=== PATIENT | male | born 1965 | race Caucasian/White ===

== ENCOUNTER 2018-02-19 13:44 | Emergency (ER) | payer SELFPAY ==
[2018-02-19 14:07] VITALS: TEMP 98.1; BMI 19.9
--- NOTE | 2018-02-19 14:10 | PDOC ---
Rapid Medical Evaluation Time Seen by Provider: 02/19/18 14:05 Medical Evaluation: Allergies Allergy/AdvReac Type Severity Reaction Status Date / Time No Known Allergies Allergy Verified 02/19/18 14:01 02/19/18 14:06 Patient with PMH of cirrhosis, presents to the ED c/o strong substernal chest pain since this morning. Rates the pain a 10/10. Pertinent Physical exam findings: ambulatory, no respiratory distress. Chest pain reproducable with movement Pt. will proceed to the ED for further evaluation
[2018-02-19 14:51] LABS: URINE APPEARANCE CLEAR; URINE BILIRUBIN NEGATIVE (<2.0 mg/dL); URINE BLOOD NEGATIVE (NEGATIVE); URINE COLOR COLORLESS; URINE GLUCOSE (UA) NEGATIVE (NEGATIVE); URINE KETONE NEGATIVE (NEGATIVE); URINE LEUK ESTERASE NEGATIVE (NEGATIVE); URINE NITRITE NEGATIVE (NEGATIVE); URINE PROTEIN NEGATIVE (NEGATIVE); URINE UROBILINOGEN NEGATIVE mg/dL (0.2-1.0)
[2018-02-19 14:57] LABS: BASO % 1.4 % (0-2.0); EOS % 1.6 % (0-4.5); HEMATOCRIT 38.5 % (35.4-49); HEMOGLOBIN 13.3 GM/dL (11.7-16.9); LYMPH % 26.5 % (8-40); MCH 34.7 pg (25.7-33.7); MCHC 34.6 g/dl (32.0-35.9); MEAN CELL VOLUME 100.4 fl (80-96); MEAN PLT VOLUME 7.5 fl (7.5-11.1); MONO % 10.3 % (3.8-10.2); NEUT % 60.2 % (42.8-82.8); PLATELET COUNT 195 K/MM3 (134-434); RBC 3.83 M/mm3 (4.00-5.60); RDW 13.3 % (11.9-15.9); WHITE BLOOD COUNT 5.1 K/mm3 (4.0-10.0)
[2018-02-19 15:11] LABS: INR 0.81 (0.82-1.09); PROTHROMBIN TIME (PATIENT) 9.1 SEC (9.98-11.88)
[2018-02-19 15:20] LABS: ANION GAP 11 (8-16); CALCIUM 8.6 mg/dL (8.5-10.1); CHLORIDE 104 mmol/L (98-107); CO2 27 mmol/L (21-32); CREATININE 0.5 mg/dL (0.7-1.3); GLUCOSE,RANDOM 99 mg/dL (74-106); MAGNESIUM 2.8 mg/dL (1.8-2.4); POTASSIUM 4.3 mmol/L (3.5-5.1); SGOT/AST 124 U/L (15-37); SGPT/ALT 118 U/L (12-78); SODIUM 142 mmol/L (136-145)
[2018-02-19 15:25] LABS: ALK PHOS 92 U/L (45-117); BILIRUBIN,TOTAL 0.3 mg/dL (0.2-1.0); BLOOD UREA NITROGEN 7 mg/dL (7-18); TOT PROT 7.9 g/dl (6.4-8.2)
[2018-02-19] MEDS ORDERED: KETOROLAC TROMETHAMINE 30 MG/1 ML VIAL IVPUSH ONE (15:25)
[2018-02-19] MEDS ORDERED: FOLIC ACID INJECTION - 1 MG, THIAMINE HCL 100 MG, MULTIVIT INJECTION ADULT 10 ML in SOD... IVPB ONE (15:27)
[2018-02-19] MEDS ORDERED: KETOROLAC TROMETHAMINE 30 MG/1 ML VIAL ONE (15:46)
--- NOTE | 2018-02-19 15:53 | EKG ---
Test Reason : Blood Pressure : / mmHG Vent. Rate : 087 BPM Atrial Rate : 087 BPM P-R Int : 166 ms QRS Dur : 080 ms QT Int : 378 ms P-R-T Axes : 075 070 071 degrees QTc Int : 454 ms NORMAL SINUS RHYTHM NORMAL ECG NO PREVIOUS ECGS AVAILABLE Confirmed by SUKH FIELD MD ([id number]) on 02/19/2018 3:52:57 PM Referred By: Confirmed By:SUKH FIELD MD
--- NOTE | 2018-02-19 17:34 | PDOC ---
History of Present Illness - General Chief Complaint: Chest Pain Stated Complaint: CHEST PAIN Time Seen by Provider: 02/19/18 14:05 History Source: Patient Exam Limitations: No Limitations - History of Present Illness Travel History: No Initial Comments: 02/19/18 17:01 52-year-old male presents to the ED with complaints of right-sided chest pain worsened with movement and deep breathing that radiates to his right upper quadrant and mid sternal region. 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 Patient also states is an alcoholic but denies history of pancreatitis or cirrhosis. She denies nausea vomiting fever, chills, headache, difficulty breathing, palpitations, or diaphoresis. Timing/Duration: reports: intermittent Quality: reports: mild, aching Abdominal Pain Onset Location: reports: other Pain Radiation: reports: RUQ, chest Aggravating Factors: improves with: Movement Alleviating Factors: improves with: None Past History - Travel Traveled outside of the country in the last 30 days: No - Past Medical History Allergies/Adverse Reactions: Allergies Allergy/AdvReac Type Severity Reaction Status Date / Time No Known Allergies Allergy Verified 02/19/18 14:01 Home Medications: Ambulatory Orders No Home Medications 07/10/12 Asthma: No Cardiac Disorders: No COPD: No Diabetes: No GI Disorders: No Disorders: No HTN: No Kidney Stones: No Seizures: No Other medical history: DENIES. - Surgical History Abdominal Surgery: No Appendectomy: No Cardiac Surgery: No Cholecystectomy: No Lung Surgery: No Neurologic Surgery: No Orthopedic Surgery: No - Reproductive History Testicular Surgery: No - Suicide/Smoking/Psychosocial Hx Smoking Status: Yes Smoking History: Current some day smoker Have you smoked in the past 12 months: Yes Number of Cigarettes Smoked Daily: 2 Information on smoking cessation initiated: Yes 'Breaking Loose' booklet given: 02/19/18 Hx Alcohol Use: Yes (3 BEERS A DAY) Drug/Substance Use Hx: No Substance Use Type: Alcohol Hx Substance Use Treatment: Yes ([facility]) Patient Lives Alone: No Abd/GI Specific PMHX - Complaint Specific PMHX Hepatitis: No Pancreatitis: No Review of Systems - Review of Systems Able to Perform ROS?: No Constitutional: No: Symptoms Reported HEENTM: No: Symptoms Reported Respiratory: No: Symptoms reported Cardiac (ROS): Yes: Chest Pain (right-sided) ABD/GI: Yes: Poor Appetite, Poor Fluid Intake. No: Constipated, Diarrhea : No: Symptoms Reported Musculoskeletal: No: Symptoms Reported Integumentary: No: Symptoms Reported Neurological: No: Symptoms reported Hematologic/Lymphatic: No: Symptoms Reported *Physical Exam - Vital Signs Last Vital Signs Temp Pulse Resp BP Pulse Ox 98.1 F 83 19 130/87 95 02/19/18 14:01 02/19/18 14:01 02/19/18 14:01 02/19/18 14:01 02/19/18 14:01 - Physical Exam General Appearance: Yes: Nourished, Appropriately Dressed. No: Apparent Distress HEENT: positive: Pharynx Normal (dry) Neck: positive: Supple Respiratory/Chest: positive: Chest Tender (right lower chest at midclavicular line and laterally Eighth intercostal space to right upper qurant), Lungs Clear , Normal Breath Sounds. negative: Respiratory Distress, Accessory Muscle Use Cardiovascular: positive: Regular Rhythm, Regular Rate. negative: Murmur Gastrointestinal/Abdominal: positive: Soft, Tenderness (right upper quadrant and right epigastric) Extremity: positive: Normal Capillary Refill. negative: Pedal Edema ED Treatment Course - LABORATORY CBC & Chemistry Diagram: 02/19/18 14:31 02/19/18 14:31 - ADDITIONAL ORDERS Additional order review: Laboratory Results 02/19/18 02/19/18 02/19/18 14:37 14:31 14:31 PT with INR 9.10 L INR 0.81 L Sodium 142 Potassium 4.3 Chloride 104 Carbon Dioxide 27 Anion Gap 11 BUN 7 D Creatinine 0.5 L D Creat Clearance w eGFR > 60 Random Glucose 99 D Calcium 8.6 Magnesium 2.8 H Total Bilirubin 0.3 D AST 124 H D ALT 118 H Alkaline Phosphatase 92 D Creatine Kinase Creatine Kinase Index CK-MB (CK-2) Troponin I Total Protein 7.9 Albumin 4.0 Urine Color Colorless Urine Appearance Clear Urine pH 6.0 Ur Specific Anderson 1.002 Urine Protein Negative Urine Glucose (UA) Negative Urine Ketones Negative Urine Blood Negative Urine Nitrite Negative Urine Bilirubin Negative Urine Urobilinogen Negative Ur Leukocyte Esterase Negative 02/19/18 14:18 PT with INR INR Sodium Potassium Chloride Carbon Dioxide Anion Gap BUN Creatinine Creat Clearance w eGFR Random Glucose Calcium Magnesium Total Bilirubin AST ALT Alkaline Phosphatase Creatine Kinase 211 Creatine Kinase Index 0.4 CK-MB (CK-2) < 1.000 Troponin I < 0.02 Total Protein Albumin Urine Color Urine Appearance Urine pH Ur Specific Anderson Urine Protein Urine Glucose (UA) Urine Ketones Urine Blood Urine Nitrite Urine Bilirubin Urine Urobilinogen Ur Leukocyte Esterase 02/19/18 14:31 RBC 3.83 L MCV 100.4 H MCHC 34.6 RDW 13.3 MPV 7.5 Neutrophils % 60.2 Lymphocytes % 26.5 Monocytes % 10.3 H Eosinophils % 1.6 Basophils % 1.4 - RADIOLOGY Radiology Studies Ordered: Category Date Time Status GALLBLADDER US [US] Stat Ultrasound 02/19/18 15:25 Completed - Medications Given in the ED: ED Medications Discontinued Medications Generic Name Dose Route Start Last Admin Trade Name Sudhakarq PRN Reason Stop Dose Admin Ketorolac Tromethamine 30 mg 02/19/18 15:25 02/19/18 15:54 Toradol Injection - IVPUSH 02/19/18 15:26 30 mg ONCE ONE Administration Medical Decision Making - Medical Decision Making 02/19/18 16:48 Patient with history of alcohol abuse presents the ED with complaints of right- sided chest pain that rates his right upper quadrant worsened with movement and deep breathing. Patient had reproducible right sided chest pain and right upper quadrant pain. Patient with likely muscle skeletal versus pancreatitis versus cholecystitis versus pneumonia. Patient ordered for labs and imaging from rapid medical evaluation. I have added a gallbladder ultrasound along with a banana bag and Toradol for pain 02/19/18 17:52 Laboratory Tests 02/19/18 02/19/18 02/19/18 14:18 14:31 14:31 WBC 5.1 Hgb 13.3 Hct 38.5 MCV 100.4 H MCH 34.7 H MCHC 34.6 RDW 13.3 Plt Count 195 MPV 7.5 Neutrophils % 60.2 Lymphocytes % 26.5 Monocytes % 10.3 H Eosinophils % 1.6 Basophils % 1.4 PT with INR INR Sodium 142 Potassium 4.3 Chloride 104 Carbon Dioxide 27 Anion Gap 11 BUN 7 D Creatinine 0.5 L D Creat Clearance w eGFR > 60 Random Glucose 99 D Calcium 8.6 Magnesium 2.8 H Total Bilirubin 0.3 D AST 124 H D ALT 118 H Creatine Kinase 211 Creatine Kinase Index 0.4 CK-MB (CK-2) < 1.000 Troponin I < 0.02 Urine Ketones Urine Nitrite Urine Bilirubin Ur Leukocyte Esterase 02/19/18 02/19/18 14:31 14:37 WBC Hgb Hct MCV MCH MCHC RDW Plt Count MPV Neutrophils % Lymphocytes % Monocytes % Eosinophils % Basophils % PT with INR 9.10 L INR 0.81 L Sodium Potassium Chloride Carbon Dioxide Anion Gap BUN Creatinine Creat Clearance w eGFR Random Glucose Calcium Magnesium Total Bilirubin AST ALT Creatine Kinase Creatine Kinase Index CK-MB (CK-2) Troponin I Urine Ketones Negative Urine Nitrite Negative Urine Bilirubin Negative Ur Leukocyte Esterase Negative Patient will be discharged home and was offered detox which he refused at this time. Patient states feeling better after receiving the Toradol. 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 patient last drink was this morning which consisted of 3 beers. *DC/Admit/Observation/Transfer Diagnosis at time of Disposition: Right-sided chest pain - Discharge Dispostion Disposition: HOME Condition at time of disposition: Improved - Referrals - Patient Instructions Printed Discharge Instructions: DI for Musculoskeletal Pain, DI for Alcohol Abuse Additional Instructions: Please utilizes all resources to abstain from alcohol use. May take Motrin only for discomfort. Avoid movement that trigger discomfort. - Post Discharge Activity
[2018-02-19 18:53] VITALS: BP 128/72; PULSE 89
== END 2018-02-19 19:02 | disposition home or self-care (01) ==
LOC: JER 13:44
PROC: 3E033GC Introduction of Other Therapeutic Substance into Peripheral Vein, Percutaneous Approach (ICD-10-PCS; principal; 2018-02-19)
PROC: 3E0333Z Introduction of Anti-inflammatory into Peripheral Vein, Percutaneous Approach (ICD-10-PCS; 2018-02-19)
DX: R07.89 Other chest pain (principal); F10.10 Alcohol abuse, uncomplicated; F17.210 Nicotine dependence, cigarettes, uncomplicated
CPT/HCPCS: 36415; 71046-TC-FY; 76705-TC; 80053; 81003; 82550; 82553; 83690; 83735; 84484; 85025; 85610; 93005; 93010; 99285-25; J7030

== ENCOUNTER 2019-01-10 14:10 | Emergency (ER) | payer SELFPAY ==
[2019-01-10 14:45] VITALS: BMI 19.2
--- NOTE | 2019-01-10 14:54 | PDOC ---
History of Present Illness - General Chief Complaint: Pain Stated Complaint: LL ABD PAIN Time Seen by Provider: 01/10/19 14:53 History Source: Patient, Family (Son) Exam Limitations: No Limitations Past History - Past Medical History Allergies/Adverse Reactions: Allergies Allergy/AdvReac Type Severity Reaction Status Date / Time No Known Allergies Allergy Verified 01/10/19 14:45 Home Medications: Ambulatory Orders No Home Medications 07/10/12 Omeprazole 20 mg PO DAILY PRN #30 tablet. 01/10/19 Asthma: No Cardiac Disorders: No COPD: No Diabetes: No GI Disorders: No Disorders: No HTN: No Kidney Stones: No Seizures: No - Surgical History Abdominal Surgery: No Appendectomy: No Cardiac Surgery: No Cholecystectomy: No Lung Surgery: No Neurologic Surgery: No Orthopedic Surgery: No - Reproductive History Testicular Surgery: No - Suicide/Smoking/Psychosocial Hx Smoking Status: Yes Smoking History: Never smoked Have you smoked in the past 12 months: No Number of Cigarettes Smoked Daily: 2 Information on smoking cessation initiated: No 'Breaking Loose' booklet given: 02/19/18 Hx Alcohol Use: No Drug/Substance Use Hx: No Substance Use Type: Alcohol Hx Substance Use Treatment: Yes ([facility]) *Physical Exam - Vital Signs Last Vital Signs Temp Pulse Resp BP Pulse Ox 98.3 F 88 16 155/95 100 01/10/19 14:30 01/10/19 14:30 01/10/19 14:30 01/10/19 14:30 01/10/19 14:30 Moderate Sedation - Procedure Monitoring Vital Signs: Procedure Monitoring Vital Signs Temperature 98.3 F 01/10/19 14:30 Pulse Rate 88 01/10/19 14:30 Respiratory Rate 16 01/10/19 14:30 Blood Pressure 155/95 01/10/19 14:30 O2 Sat by Pulse Oximetry (%) 100 01/10/19 14:30 ED Treatment Course - LABORATORY CBC & Chemistry Diagram: 01/10/19 16:09 01/10/19 16:09 Medical Decision Making - Medical Decision Making Pt was seen at bedside, also will be seen by attending Dr. Borges. Pt presenting with complaints of LUQ abdominal pain, nausea, NBNB vomiting, and loose stool. Hypertensive 155/95, pt afebrile. Pt in looks uncomfortable, but in NAD, normal body habitus. PE showed pt alert and oriented. horse rancher generally intact, muscular strength and sensation intact. Eyes PERRLA, EOMI. Oropharynx without erythema or exudates. Dry oral mucosa and decreased skin turgor. No nasal congestion, hearing intact. Clear heart sounds, S1/S2, no JVD, b/l pedal edema, or heart murmur. Clear lung sounds, no respiratory distress, wheezes, crackles, or accessory muscle use. Pt guarding his abdomen, diffusely tender, worst in the LUQ. No CVA tenderness. Normoactive bowel sounds. Skin without jaundice or rash. Considering pancreatitis vs duodenal/gastric ulcer or perforation vs colitis/ diverticulitis vs UTI vs nephrolithiasis. Ordered work-up including CBC, CMP, Mg, lactic acid, cardiac profile, UA, urine culture, coags, and chest x-ray (r/o free air). Provided 1 g IV ofirmev, 1 L IV NS, 40 mg IV protonix, and 4 mg IV zofran for improvement of discomfort, dehydration, and nausea. Will continue to reassess pt and monitor for symptomatic improvement. 01/10/19 16:24 ECG: NSR, intervals WNL. No TWIs or significant ST segment changes. No significant changes from prior ECG. 01/10/19 16:46 CBC and CMP WNL. AST and ALT not elevated Lipase 393 (upper limit of normal) Trop <.02, Lactic 2.0 Coags WNL. 01/10/19 16:59 Pt tolerated PO intake and states he is feeling much better after the medications and fluids. Will send omeprazole to pt pharmacy. Considering normal lab results and imaging and clinical improvement, pt can be discharged to home with follow-up. Pt advised to follow-up with PCP in 1-2 days and has been referred to GI. PCP appointment made at the clinic. Strict return precautions provided with pt understanding. 01/10/19 17:41 *DC/Admit/Observation/Transfer Diagnosis at time of Disposition: LUQ abdominal pain - Discharge Dispostion Disposition: HOME Condition at time of disposition: Improved Decision to Admit order: No - Referrals Referrals: Fabio Oliver MD [Staff Physician] - Madison Frye MD [Staff Physician] - - Patient Instructions Printed Discharge Instructions: DI for Abdominal Pain-Adult Additional Instructions: You were seen in the ER today for abdominal pain. The results of your labs and imaging today were normal. Please follow-up with your primary care doctor and GI (Dr. Oliver) within 1-2 days to discuss your visit and make sure your symptoms have improved. Please return to the ER if you have any worsening pain, blood in your vomit or stool, development of fevers or chills, loss of consciousness, inability to tolerate food or fluids, or any other concerns. I have sent omeprazole (acid safety teacher) to your pharmacy. Please take this medicine as prescribed. - Post Discharge Activity
[2019-01-10] MEDS ORDERED: ONDANSETRON 4 MG/2 ML VIAL IVPUSH ONE (15:12)
[2019-01-10] MEDS ORDERED: SODIUM CHLORIDE 1,000 ML IV STA (15:12)
[2019-01-10] MEDS ORDERED: ACETAMINOPHEN 1000 MG/100 ML VIAL (NON FORMULARY) IVPB ONE (15:12)
[2019-01-10] MEDS ORDERED: PANTOPRAZOLE SODIUM 40 MG in SODIUM CHLORIDE 100 ML IVPB ONE (15:28)
[2019-01-10] MEDS ORDERED: ACETAMINOPHEN INJECTION 100 ML IVPB ONE (16:09)
[2019-01-10] MEDS ORDERED: PANTOPRAZOLE SODIUM 40 MG VIAL ONE (16:10)
[2019-01-10] MEDS ORDERED: ONDANSETRON 4 MG/2 ML VIAL ONE (16:10)
[2019-01-10 16:29] LABS: BASO % 0.8 % (0-2.0); EOS % 0.3 % (0-4.5); HEMATOCRIT 38.4 % (35.4-49); HEMOGLOBIN 13.6 GM/dL (11.7-16.9); LYMPH % 20.5 % (8-40); MCH 35.4 pg (25.7-33.7); MCHC 35.4 g/dl (32.0-35.9); MEAN CELL VOLUME 99.8 fl (80-96); MEAN PLT VOLUME 7.5 fl (7.5-11.1); NEUT % 69.4 % (42.8-82.8); PLATELET COUNT 188 K/MM3 (134-434); RBC 3.85 M/mm3 (4.00-5.60); RDW 12.4 % (11.9-15.9); WHITE BLOOD COUNT 5.7 K/mm3 (4.0-10.0)
[2019-01-10 16:36] LABS: INR 0.87 (0.83-1.09); PROTHROMBIN TIME (PATIENT) 10.2 SEC (9.7-13.0)
--- NOTE | 2019-01-10 16:40 | PDOC ---
Attending Attestation - Resident Resident Name: SabrinaMaria Ines - ED Attending Attestation I have performed the following: I have examined & evaluated the patient, The case was reviewed & discussed with the resident, I agree w/resident's findings & plan, Exceptions are as noted - HPI HPI: 01/10/19 16:31 The patient is a 53 year old male, with a past medical history of alcohol abuse , who presents to the emergency department with, 3 days of LUQ pain radiating to his back and upper chest. He also notes associated nausea, non-bloody emesis , and one episode of loose stool. He denies any recent headache or dizziness. He denies any recent palpitations or shortness of breath. He denies any recent dysuria, frequency, urgency or hematuria. Allergies: NKDA - Physicial Exam PE: 01/10/19 16:47 "GENERAL: Awake, alert, and fully oriented, in no acute distress. HEAD: No signs of trauma EYES: PERRLA, EOMI, sclera anicteric, conjunctiva clear ENT: Auricles normal inspection, hearing grossly normal, nares patent, oropharynx clear without exudates. Moist mucosa NECK: Nontender, no stepoffs, Normal ROM, supple, no lymphadenopathy, JVD, or masses LUNGS: Breath sounds equal, clear to auscultation bilaterally. No wheezes, and no crackles HEART: Regular rate and rhythm, normal S1 and S2, no murmurs, rubs or gallops ABDOMEN: + LUQ TTP, normoactive bowel sounds. No guarding, no rebound. No masses EXTREMITIES: Normal range of motion, no edema. No clubbing or cyanosis. No cords, erythema, or tenderness NEUROLOGICAL: Cranial nerves II through XII intact. 5/5 strength and sensation in all extremities, Normal speech, normal gait, normal cerebellar function SKIN: Warm, Dry, normal turgor, no rashes or lesions noted. - Medical Decision Making 01/10/19 16:48 53 M with h/o ETOH abuse presenting with LUQ pain. Pancreatitis vs gastritis vs PUD. Also consider perforated ulcer. - Labs, lipase - Upright CXR to r/o free air - GI cocktail - Consider CT 01/10/19 17:44 Labs wnl CXR without free air Pt reassessed after GI cocktail - states he feels much better. Suspect gastritis vs PUD. Pt counseled on reducing alcohol intake. Understands that continued use can lead to worsening of his condition. GI f/u given Pt is well appearing, with normal vitals. Clinically stable for DC at this time. I discussed the physical exam findings, ancillary test results and final diagnoses with the patient. I answered all of the patient's questions. The patient was satisfied with the care received and felt comfortable with the discharge plan and treatment plan. The patient agrees to follow up with the primary care physician within 24-72 hours.
[2019-01-10 16:41] LABS: URINE APPEARANCE CLEAR; URINE BILIRUBIN NEGATIVE (<2.0 mg/dL); URINE COLOR COLORLESS; URINE GLUCOSE (UA) 1+ (NEGATIVE); URINE KETONE TRACE (NEGATIVE); URINE LEUK ESTERASE NEGATIVE (NEGATIVE); URINE NITRITE NEGATIVE (NEGATIVE); URINE PROTEIN NEGATIVE (NEGATIVE); URINE UROBILINOGEN NEGATIVE mg/dL (0.2-1.0)
[2019-01-10 16:56] LABS: ALBUMIN 4.1 g/dl (3.4-5.0); ALK PHOS 50 U/L (45-117); ANION GAP 9 MMOL/L (8-16); BILIRUBIN,TOTAL 0.6 mg/dL (0.2-1); BLOOD UREA NITROGEN 9 mg/dL (7-18); CALCIUM 8.4 mg/dL (8.5-10.1); CHLORIDE 102 mmol/L (98-107); CO2 27 mmol/L (21-32); CREATININE 1.2 mg/dL (0.55-1.3); GLUCOSE,RANDOM 70 mg/dL (74-106); LIPASE 393 U/L (73-393); POTASSIUM 3.8 mmol/L (3.5-5.1); SGOT/AST 25 U/L (15-37); SGPT/ALT 27 U/L (13-61); SODIUM 138 mmol/L (136-145); TOT PROT 7.6 g/dl (6.4-8.2)
[2019-01-10 17:57] VITALS: BP 129/89; PULSE 85; TEMP 98.4
--- NOTE | 2019-01-11 10:32 | EKG ---
Test Reason : Blood Pressure : / mmHG Vent. Rate : 075 BPM Atrial Rate : 075 BPM P-R Int : 148 ms QRS Dur : 084 ms QT Int : 376 ms P-R-T Axes : 076 075 064 degrees QTc Int : 419 ms NORMAL SINUS RHYTHM NORMAL ECG WHEN COMPARED WITH ECG OF 19-FEB-2018 13:49, NO SIGNIFICANT CHANGE WAS FOUND Confirmed by TERESA BAXTER MD ([id number]) on 01/11/2019 10:31:45 AM Referred By: Confirmed By:TERESA BAXTER MD
== END 2019-01-10 18:35 | disposition home or self-care (01) ==
LOC: JER 14:10
PROC: 3E033GC Introduction of Other Therapeutic Substance into Peripheral Vein, Percutaneous Approach (ICD-10-PCS; principal; 2019-01-10)
PROC: 3E033GC Introduction of Other Therapeutic Substance into Peripheral Vein, Percutaneous Approach (ICD-10-PCS; 2019-01-10)
PROC: 3E033NZ Introduction of Analgesics, Hypnotics, Sedatives into Peripheral Vein, Percutaneous Approach (ICD-10-PCS; 2019-01-10)
DX: R10.12 Left upper quadrant pain (principal)
CPT/HCPCS: 36415; 71045-TC-FY; 80053; 81003; 82550; 82553; 83605; 83690; 83735; 84484; 85025; 85610; 87086; 93005; 93010; 99283-25; J0131; J7030

== ENCOUNTER 2021-04-21 10:26 | Emergency (ER) | payer SELFPAY ==
[2021-04-21 10:31] VITALS: BP 130/90; PULSE 87; TEMP 97.6; BMI 18.8
[2021-04-21] MEDS ORDERED: DALBAVANCIN HCL 1,500 MG in DEXTROSE 5%-WATER - 500 ML IVPB ONE ×2 (11:04→12:30)
[2021-04-21] MEDS ORDERED: DALBAVANCIN HCL 500 MG VIAL (RESTRICTED TO ID ONLY) IVPB ONE (12:35)
[2021-04-21 13:20] LABS: CALCIUM 8.4 mg/dL (8.5-10.1)
[2021-04-21 13:21] LABS: ALBUMIN 3.9 g/dl (3.4-5.0); BLOOD UREA NITROGEN 5.8 mg/dL (7-18)
[2021-04-21] MEDS ORDERED: BACITRACIN 15 GM TUBE TOPICAL OINTMENT TP ONE (13:21)
[2021-04-21 13:24] LABS: CREATININE 0.5 mg/dL (0.55-1.3)
[2021-04-21 13:26] LABS: BILIRUBIN,TOTAL 0.4 mg/dL (0.2-1); TOT PROT 8.1 g/dl (6.4-8.2)
[2021-04-21 13:28] LABS: BASO % 2.2 % (0-2.0); EOS % 3.4 % (0-4.5); HEMATOCRIT 37.7 % (35.4-49); HEMOGLOBIN 12.9 GM/dL (11.7-16.9); LYMPH % 19.1 % (8-40); MCH 35.7 pg (25.7-33.7); MCHC 34.4 g/dl (32.0-35.9); MEAN CELL VOLUME 103.8 fl (80-96); MEAN PLT VOLUME 7.9 fl (7.5-11.1); MONO % 8.3 % (3.8-10.2); PLATELET COUNT 219 K/MM3 (134-434); RBC 3.63 M/mm3 (4.00-5.60); RDW 13.3 % (11.9-15.9); WHITE BLOOD COUNT 6.8 K/mm3 (4.0-10.0)
[2021-04-21] MEDS ORDERED: BACITRACIN 15 GM TUBE TOPICAL OINTMENT ONE (13:44)
== END 2021-04-21 13:55 | disposition home or self-care (01) ==
LOC: JER 10:26
DX: L03.116 Cellulitis of left lower limb (principal); L03.115 Cellulitis of right lower limb; S81.801A Unspecified open wound, right lower leg, initial encounter
CPT/HCPCS: 36415; 73590-TC-LT-FY; 73590-TC-RT-FY; 80053; 85025; 99285-25; J0875

== ENCOUNTER 2021-04-23 13:24 | Emergency (ER) | payer SELFPAY ==
[2021-04-23 13:32] VITALS: BP 122/82; PULSE 105; TEMP 99.2; BMI 20.6
== END 2021-04-23 13:46 | disposition home or self-care (01) ==
LOC: JERFT 13:24
CPT/HCPCS: 99284-25

== ENCOUNTER 2021-10-26 14:06 | Inpatient (IN) | payer OTHER ==
[2021-10-26] MEDS ORDERED: THIAMINE HCL 100 MG TABLET (FP) PO ONE (16:29)
[2021-10-26] MEDS ORDERED: FOLIC ACID 1 MG TABLET (FP) PO ONE (16:29)
[2021-10-26] MEDS ORDERED: LACTATED RINGERS SOLUTION 1000 ML INFUS.BAG IV ONE (16:30)
[2021-10-26] MEDS ORDERED: FOLIC ACID 1 MG TABLET (FP) ONE (17:32)
[2021-10-26] MEDS ORDERED: THIAMINE HCL 100 MG TABLET (FP) ONE (17:32)
[2021-10-26 19:20] LABS: BASO % 3.3 % (0-2.0); EOS % 3.5 % (0-4.5); HEMATOCRIT 37.1 % (35.4-49); HEMOGLOBIN 12.6 GM/dL (11.7-16.9); LYMPH % 24.1 % (8-40); MCH 34.9 pg (25.7-33.7); MEAN CELL VOLUME 102.7 fl (80-96); MONO % 11.6 % (3.8-10.2); NEUT % 57.5 % (42.8-82.8); PLATELET COUNT 141 10^3/uL (134-434); RBC 3.61 M/mm3 (4.00-5.60); RDW 13.2 % (11.9-15.9); WHITE BLOOD COUNT 2.9 K/mm3 (4.0-10.0)
[2021-10-26 19:52] LABS: ALBUMIN 3.8 g/dl (3.4-5.0); BLOOD UREA NITROGEN 5.5 mg/dL (7-18); CALCIUM 8.6 mg/dL (8.5-10.1)
[2021-10-26 19:56] LABS: CREATININE 0.5 mg/dL (0.55-1.3)
[2021-10-26 19:57] LABS: BILIRUBIN,TOTAL 0.5 mg/dL (0.2-1); TOT PROT 7.8 g/dl (6.4-8.2)
[2021-10-26] MEDS ORDERED: THIAMINE HCL 200 MG/2 ML VIAL IVPB ONE (20:55)
[2021-10-26] MEDS ORDERED: LORazepam 2 MG/ML SDV VIAL ONE (21:24)
[2021-10-26] MEDS ORDERED: THIAMINE HCL 200 MG/2 ML VIAL ONE (21:25)
[2021-10-26] MEDS: LORazepam 2 MG/ML SDV VIAL IVPUSH PRN (21:37)
[2021-10-27] MEDS ORDERED: SODIUM CHLORIDE 1,000 ML IV SCH (01:15)
[2021-10-27] MEDS: LORazepam 2 MG/ML SDV VIAL IVPUSH PRN (04:43)
[2021-10-27 05:48] VITALS: BMI 24.5
[2021-10-27 08:13] LABS: PH,URINE 7.5 (5.0-8.0); URINE APPEARANCE CLEAR; URINE BILIRUBIN NEGATIVE (NEGATIVE); URINE COLOR YELLOW; URINE GLUCOSE (UA) NEGATIVE (NEGATIVE); URINE KETONE TRACE (NEGATIVE); URINE LEUK ESTERASE NEGATIVE (NEGATIVE); URINE NITRITE NEGATIVE (NEGATIVE); URINE PROTEIN NEGATIVE (NEGATIVE); URINE UROBILINOGEN 0.2 mg/dL (0.2-1.0)
[2021-10-27] MEDS: PANTOPRAZOLE 40 MG TABLET PO SCH (10:56)
[2021-10-27 11:15] LABS: HEMATOCRIT 36.8 % (35.4-49); HEMOGLOBIN 12.7 GM/dL (11.7-16.9); MCH 35.3 pg (25.7-33.7); MCHC 34.4 g/dl (32.0-35.9); MEAN CELL VOLUME 102.7 fl (80-96); MEAN PLT VOLUME 8.4 fl (7.5-11.1); PLATELET COUNT 138 10^3/uL (134-434); RBC 3.58 M/mm3 (4.00-5.60); WHITE BLOOD COUNT 3.5 K/mm3 (4.0-10.0)
[2021-10-27 11:16] LABS: INR 0.97 (0.83-1.09); PROTHROMBIN TIME (PATIENT) 11.3 SEC (9.7-13.0)
[2021-10-27 11:43] LABS: CALCIUM 8.9 mg/dL (8.5-10.1)
[2021-10-27 11:47] LABS: ALBUMIN 3.5 g/dl (3.4-5.0)
[2021-10-27 11:48] LABS: BLOOD UREA NITROGEN 8.6 mg/dL (7-18)
[2021-10-27 11:50] LABS: CREATININE 0.5 mg/dL (0.55-1.3); PHOSPHOROUS 3.4 mg/dL (2.5-4.9)
[2021-10-27 11:52] LABS: MAGNESIUM 2.1 mg/dL (1.8-2.4); TOT PROT 7.4 g/dl (6.4-8.2)
[2021-10-27] MEDS: LORazepam 1 MG TABLET PO PRN (13:56)
[2021-10-27] MEDS ORDERED: FOLIC ACID INJECTION - 1 MG, THIAMINE HCL 100 MG in SODIUM CHLORIDE 998.8 ML IVPB ONE (16:00)
[2021-10-27] MEDS ORDERED: LORazepam 2 MG TABLET PO SCH (17:00)
[2021-10-27] MEDS: MULTIVITAMINS (DAILY MVI) TABLET (FP) PO SCH (18:49)
[2021-10-27] MEDS: LORazepam 1 MG TABLET PO SCH (19:50)
[2021-10-27] MEDS ORDERED: CILOSTAZOL 100 MG TABLET PO SCH (22:00)
[2021-10-27] MEDS: CILOSTAZOL 50 MG TABLET PO SCH (22:49)
[2021-10-28] MEDS: LORazepam 1 MG TABLET PO SCH ×5 (01:10→22:18)
[2021-10-28] MEDS ORDERED: amLODIPine BESYLATE 5 MG TABLET (FP) PO ONE (02:05)
[2021-10-28] MEDS: CILOSTAZOL 50 MG TABLET PO SCH ×2 (09:41→22:16)
[2021-10-28] MEDS: MULTIVITAMINS (DAILY MVI) TABLET (FP) PO SCH (09:42)
[2021-10-28] MEDS: PANTOPRAZOLE 40 MG TABLET PO SCH (09:42)
[2021-10-28 10:23] LABS: HEMATOCRIT 39.6 % (35.4-49); HEMOGLOBIN 13.6 GM/dL (11.7-16.9); MCH 35.5 pg (25.7-33.7); MCHC 34.4 g/dl (32.0-35.9); MEAN CELL VOLUME 103.2 fl (80-96); MEAN PLT VOLUME 8.7 fl (7.5-11.1); PLATELET COUNT 138 10^3/uL (134-434); RBC 3.83 M/mm3 (4.00-5.60); WHITE BLOOD COUNT 4.2 K/mm3 (4.0-10.0)
[2021-10-28 10:26] LABS: PROTHROMBIN TIME (PATIENT) 11.2 SEC (9.7-13.0)
[2021-10-28 10:56] LABS: ALBUMIN 3.5 g/dl (3.4-5.0); CALCIUM 8.7 mg/dL (8.5-10.1); MAGNESIUM 2.1 mg/dL (1.8-2.4)
[2021-10-28 10:57] LABS: BLOOD UREA NITROGEN 8.4 mg/dL (7-18)
[2021-10-28 10:59] LABS: PHOSPHOROUS 2.8 mg/dL (2.5-4.9)
[2021-10-28 11:00] LABS: CREATININE 0.7 mg/dL (0.55-1.3)
[2021-10-28 11:01] LABS: BILIRUBIN,TOTAL 1.1 mg/dL (0.2-1); TOT PROT 7.4 g/dl (6.4-8.2)
[2021-10-28] MEDS: LORazepam 1 MG TABLET PO PRN (17:59)
[2021-10-28] MEDS ORDERED: POTASSIUM CHLORIDE TABS 20 MEQ TABLET.ER (FP) PO ONE (18:38)
[2021-10-28] MEDS: FOLIC ACID 1 MG TABLET (FP) PO SCH (18:57)
[2021-10-28] MEDS: THIAMINE HCL 100 MG TABLET (FP) PO SCH (18:57)
[2021-10-28] MEDS ORDERED: MELATONIN 5 MG TABLETS PO ONE (20:42)
[2021-10-29] MEDS: LORazepam 1 MG TABLET PO PRN ×3 (00:30→18:26)
[2021-10-29] MEDS: LORazepam 1 MG TABLET PO SCH ×4 (05:29→22:03)
[2021-10-29] MEDS ORDERED: LORazepam 2 MG/ML SDV VIAL IVPUSH PRN (09:41)
[2021-10-29] MEDS ORDERED: PT OWN MED DRAWER 7, Y5N ONE (09:53)
[2021-10-29] MEDS: THIAMINE HCL 100 MG TABLET (FP) PO SCH (10:08)
[2021-10-29] MEDS: PANTOPRAZOLE 40 MG TABLET PO SCH (10:08)
[2021-10-29] MEDS: MULTIVITAMINS (DAILY MVI) TABLET (FP) PO SCH (10:08)
[2021-10-29] MEDS: FOLIC ACID 1 MG TABLET (FP) PO SCH (10:08)
[2021-10-29] MEDS: CILOSTAZOL 50 MG TABLET PO SCH (10:09)
[2021-10-29 10:16] LABS: HEMATOCRIT 38.8 % (35.4-49); HEMOGLOBIN 13.3 GM/dL (11.7-16.9); MCH 34.8 pg (25.7-33.7); MCHC 34.4 g/dl (32.0-35.9); MEAN CELL VOLUME 101.4 fl (80-96); MEAN PLT VOLUME 8.6 fl (7.5-11.1); PLATELET COUNT 132 10^3/uL (134-434); RBC 3.82 M/mm3 (4.00-5.60); RDW 12.7 % (11.9-15.9); WHITE BLOOD COUNT 5.1 K/mm3 (4.0-10.0)
[2021-10-29 10:20] LABS: INR 0.94 (0.83-1.09)
[2021-10-29 10:44] LABS: ALBUMIN 3.5 g/dl (3.4-5.0); BLOOD UREA NITROGEN 8.8 mg/dL (7-18); MAGNESIUM 2.2 mg/dL (1.8-2.4)
[2021-10-29 10:47] LABS: CREATININE 0.6 mg/dL (0.55-1.3); PHOSPHOROUS 3.2 mg/dL (2.5-4.9)
[2021-10-29 10:48] LABS: BILIRUBIN,TOTAL 1.2 mg/dL (0.2-1); TOT PROT 7.8 g/dl (6.4-8.2)
[2021-10-29] MEDS: ENOXAPARIN NA (PORCINE) 40 MG/0.4 ML DISP.SYRIN SQ SCH (15:13)
[2021-10-30] MEDS ORDERED: LORazepam 0.5 MG TABLET PO PRN
[2021-10-30] MEDS: LORazepam 0.5 MG TABLET PO SCH ×4 (06:28→22:41)
[2021-10-30 09:59] LABS: HEMATOCRIT 40.5 % (35.4-49); MCH 35.6 pg (25.7-33.7); MCHC 34.6 g/dl (32.0-35.9); MEAN PLT VOLUME 8.3 fl (7.5-11.1); PLATELET COUNT 159 10^3/uL (134-434); RBC 3.93 M/mm3 (4.00-5.60); RDW 12.6 % (11.9-15.9); WHITE BLOOD COUNT 4.4 K/mm3 (4.0-10.0)
[2021-10-30 10:06] LABS: INR 1.01 (0.83-1.09); PROTHROMBIN TIME (PATIENT) 11.3 SEC (9.7-13.0)
[2021-10-30 10:22] LABS: BLOOD UREA NITROGEN 11.1 mg/dL (7-18); CALCIUM 8.9 mg/dL (8.5-10.1)
[2021-10-30 10:23] LABS: ALBUMIN 3.6 g/dl (3.4-5.0); MAGNESIUM 2.2 mg/dL (1.8-2.4)
[2021-10-30 10:25] LABS: CREATININE 0.8 mg/dL (0.55-1.3); PHOSPHOROUS 3.8 mg/dL (2.5-4.9)
[2021-10-30] MEDS: MULTIVITAMINS (DAILY MVI) TABLET (FP) PO SCH (10:26)
[2021-10-30] MEDS: FOLIC ACID 1 MG TABLET (FP) PO SCH (10:26)
[2021-10-30] MEDS: PANTOPRAZOLE 40 MG TABLET PO SCH (10:26)
[2021-10-30] MEDS: ENOXAPARIN NA (PORCINE) 40 MG/0.4 ML DISP.SYRIN SQ SCH (10:26)
[2021-10-30] MEDS: THIAMINE HCL 100 MG TABLET (FP) PO SCH (10:26)
[2021-10-30 10:27] LABS: TOT PROT 7.5 g/dl (6.4-8.2)
[2021-10-31] MEDS ORDERED: LORazepam 0.5 MG TABLET PO ONE (05:00)
[2021-10-31 09:48] LABS: HEMATOCRIT 38.3 % (35.4-49); MCH 35.1 pg (25.7-33.7); MEAN CELL VOLUME 103.2 fl (80-96); MEAN PLT VOLUME 7.9 fl (7.5-11.1); PLATELET COUNT 165 10^3/uL (134-434); RBC 3.71 M/mm3 (4.00-5.60); RDW 12.6 % (11.9-15.9); WHITE BLOOD COUNT 4.4 K/mm3 (4.0-10.0)
[2021-10-31 09:51] LABS: INR 1.02 (0.83-1.09); PROTHROMBIN TIME (PATIENT) 11.9 SEC (9.7-13.0)
[2021-10-31 10:58] LABS: ALBUMIN 3.1 g/dl (3.4-5.0); BLOOD UREA NITROGEN 12.4 mg/dL (7-18); CALCIUM 8.8 mg/dL (8.5-10.1)
[2021-10-31 10:59] LABS: MAGNESIUM 2.1 mg/dL (1.8-2.4)
[2021-10-31 11:01] LABS: PHOSPHOROUS 3.6 mg/dL (2.5-4.9)
[2021-10-31 11:02] LABS: CREATININE 0.7 mg/dL (0.55-1.3)
[2021-10-31 11:03] LABS: BILIRUBIN,TOTAL 0.7 mg/dL (0.2-1); TOT PROT 7.2 g/dl (6.4-8.2)
[2021-10-31] MEDS: PANTOPRAZOLE 40 MG TABLET PO SCH (12:49)
[2021-10-31] MEDS: THIAMINE HCL 100 MG TABLET (FP) PO SCH (12:49)
[2021-10-31] MEDS: MULTIVITAMINS (DAILY MVI) TABLET (FP) PO SCH (12:49)
[2021-10-31] MEDS: FOLIC ACID 1 MG TABLET (FP) PO SCH (12:49)
[2021-10-31] MEDS: ENOXAPARIN NA (PORCINE) 40 MG/0.4 ML DISP.SYRIN SQ SCH (12:49)
[2021-10-31] MEDS ORDERED: THIAMINE HCL 200 MG/2 ML VIAL IVPB SCH (15:45)
[2021-10-31] MEDS: THIAMINE HCL 200 MG/2 ML VIAL IVPB SCH (18:01)
[2021-10-31] MEDS: CYANOCOBALAMIN (VITAMIN B-12) 1000 MCG/1 ML VIAL IM SCH (18:02)
[2021-11-01] MEDS: THIAMINE HCL 200 MG/2 ML VIAL IVPB SCH ×3 (01:42→17:58)
[2021-11-01 09:34] LABS: HEMATOCRIT 36.8 % (35.4-49); HEMOGLOBIN 12.7 GM/dL (11.7-16.9); MCH 35.2 pg (25.7-33.7); MCHC 34.6 g/dl (32.0-35.9); MEAN CELL VOLUME 101.7 fl (80-96); MEAN PLT VOLUME 7.8 fl (7.5-11.1); PLATELET COUNT 177 10^3/uL (134-434); RBC 3.62 M/mm3 (4.00-5.60); RDW 12.4 % (11.9-15.9); WHITE BLOOD COUNT 4.1 K/mm3 (4.0-10.0)
[2021-11-01 09:38] LABS: INR 1.07 (0.83-1.09)
[2021-11-01 09:50] LABS: ALBUMIN 3.2 g/dl (3.4-5.0); CALCIUM 8.7 mg/dL (8.5-10.1); MAGNESIUM 2.3 mg/dL (1.8-2.4)
[2021-11-01 09:51] LABS: BLOOD UREA NITROGEN 10.8 mg/dL (7-18)
[2021-11-01 09:53] LABS: CREATININE 0.6 mg/dL (0.55-1.3); PHOSPHOROUS 3.6 mg/dL (2.5-4.9)
[2021-11-01 09:55] LABS: BILIRUBIN,TOTAL 0.6 mg/dL (0.2-1)
[2021-11-01] MEDS: FOLIC ACID 1 MG TABLET (FP) PO SCH (10:30)
[2021-11-01] MEDS: ENOXAPARIN NA (PORCINE) 40 MG/0.4 ML DISP.SYRIN SQ SCH (10:30)
[2021-11-01] MEDS: MULTIVITAMINS (DAILY MVI) TABLET (FP) PO SCH (10:30)
[2021-11-01] MEDS: PANTOPRAZOLE 40 MG TABLET PO SCH (10:30)
[2021-11-01] MEDS: CYANOCOBALAMIN (VITAMIN B-12) 1000 MCG/1 ML VIAL IM SCH (10:30)
[2021-11-01] MEDS ORDERED: LORazepam 1 MG TABLET PO PRN (16:07)
[2021-11-01] MEDS ORDERED: LORazepam 2 MG/ML SDV VIAL IVPUSH PRN (16:13)
[2021-11-02] MEDS: THIAMINE HCL 200 MG/2 ML VIAL IVPB SCH ×3 (02:10→18:03)
[2021-11-02 09:00] LABS: HEMATOCRIT 36.7 % (35.4-49); HEMOGLOBIN 12.6 GM/dL (11.7-16.9); MCH 35.2 pg (25.7-33.7); MCHC 34.4 g/dl (32.0-35.9); MEAN CELL VOLUME 102.4 fl (80-96); MEAN PLT VOLUME 7.8 fl (7.5-11.1); PLATELET COUNT 208 10^3/uL (134-434); RBC 3.58 M/mm3 (4.00-5.60); RDW 12.4 % (11.9-15.9); WHITE BLOOD COUNT 5.1 K/mm3 (4.0-10.0)
[2021-11-02 09:03] LABS: PROTHROMBIN TIME (PATIENT) 11.7 SEC (9.7-13.0)
[2021-11-02 09:19] LABS: CALCIUM 8.7 mg/dL (8.5-10.1)
[2021-11-02 09:20] LABS: ALBUMIN 3.1 g/dl (3.4-5.0); MAGNESIUM 2.4 mg/dL (1.8-2.4)
[2021-11-02 09:22] LABS: CREATININE 0.6 mg/dL (0.55-1.3)
[2021-11-02 09:24] LABS: BILIRUBIN,TOTAL 0.6 mg/dL (0.2-1); TOT PROT 6.8 g/dl (6.4-8.2)
[2021-11-02] MEDS ORDERED: PT OWN MED DRAWER 7, Y5N ONE (10:50)
[2021-11-02] MEDS: ENOXAPARIN NA (PORCINE) 40 MG/0.4 ML DISP.SYRIN SQ SCH (11:36)
[2021-11-02] MEDS: PANTOPRAZOLE 40 MG TABLET PO SCH (11:36)
[2021-11-02] MEDS: MULTIVITAMINS (DAILY MVI) TABLET (FP) PO SCH (11:36)
[2021-11-02] MEDS: CYANOCOBALAMIN (VITAMIN B-12) 1000 MCG/1 ML VIAL IM SCH (11:37)
[2021-11-02] MEDS: FOLIC ACID 1 MG TABLET (FP) PO SCH (11:37)
[2021-11-02] MEDS ORDERED: LORazepam 2 MG/ML SDV VIAL IVPUSH ONE (18:15)
[2021-11-03] MEDS: THIAMINE HCL 200 MG/2 ML VIAL IVPB SCH (02:42)
[2021-11-03] MEDS: LORazepam 1 MG TABLET PO SCH ×3 (04:23→16:12)
[2021-11-03] MEDS ORDERED: THIAMINE HCL 100 MG TABLET (FP) PO SCH (10:00)
[2021-11-03 10:13] LABS: HEMATOCRIT 37.3 % (35.4-49); HEMOGLOBIN 12.6 GM/dL (11.7-16.9); MCH 35.1 pg (25.7-33.7); MCHC 33.9 g/dl (32.0-35.9); MEAN CELL VOLUME 103.8 fl (80-96); MEAN PLT VOLUME 7.7 fl (7.5-11.1); PLATELET COUNT 230 10^3/uL (134-434); RBC 3.59 M/mm3 (4.00-5.60); RDW 12.4 % (11.9-15.9)
[2021-11-03 10:20] LABS: INR 1.05 (0.83-1.09); PROTHROMBIN TIME (PATIENT) 11.8 SEC (9.7-13.0)
[2021-11-03 10:41] LABS: CALCIUM 8.8 mg/dL (8.5-10.1)
[2021-11-03 10:42] LABS: ALBUMIN 3.1 g/dl (3.4-5.0); BLOOD UREA NITROGEN 9.2 mg/dL (7-18); MAGNESIUM 2.3 mg/dL (1.8-2.4)
[2021-11-03 10:45] LABS: PHOSPHOROUS 2.8 mg/dL (2.5-4.9)
[2021-11-03 10:46] LABS: CREATININE 0.7 mg/dL (0.55-1.3)
[2021-11-03 10:47] LABS: BILIRUBIN,TOTAL 0.4 mg/dL (0.2-1)
[2021-11-03] MEDS: PANTOPRAZOLE 40 MG TABLET PO SCH (11:11)
[2021-11-03] MEDS: FOLIC ACID 1 MG TABLET (FP) PO SCH (11:11)
[2021-11-03] MEDS: MULTIVITAMINS (DAILY MVI) TABLET (FP) PO SCH (11:11)
[2021-11-03] MEDS: CYANOCOBALAMIN (VITAMIN B-12) 1000 MCG/1 ML VIAL IM SCH (11:12)
[2021-11-03] MEDS: ENOXAPARIN NA (PORCINE) 40 MG/0.4 ML DISP.SYRIN SQ SCH (11:12)
[2021-11-03 18:08] VITALS: BP 141/82; PULSE 86; TEMP 98.1
[2021-11-04] MEDS ORDERED: LORazepam 0.5 MG TABLET PO PRN
[2021-11-04] MEDS ORDERED: LORazepam 0.5 MG TABLET PO SCH (05:00)
[2021-11-05] MEDS ORDERED: LORazepam 0.5 MG TABLET PO ONE (05:00)
== END 2021-11-03 20:00 | disposition home or self-care (01) | DRG 775 ==
LOC: JER 14:06 → JERBED 20:56 → J5S 10-27 04:35 → OBSVTOIN 11-01 08:42
PROVIDERS: ADMIT Internal Medicine; ATTEND Internal Medicine
PROC: HZ2ZZZZ Detoxification Services for Substance Abuse Treatment (ICD-10-PCS; principal; 2021-11-01)
DX: F10.239 Alcohol dependence with withdrawal, unspecified (principal); R26.0 Ataxic gait; D72.819 Decreased white blood cell count, unspecified; D75.9 Disease of blood and blood-forming organs, unspecified; R74.01 Elevation of levels of liver transaminase levels; R26.81 Unsteadiness on feet; F17.210 Nicotine dependence, cigarettes, uncomplicated; K70.10 Alcoholic hepatitis without ascites; M62.81 Muscle weakness (generalized); R29.6 Repeated falls; K80.20 Calculus of gallbladder without cholecystitis without obstruction; G62.9 Polyneuropathy, unspecified; K76.0 Fatty (change of) liver, not elsewhere classified; F10.220 Alcohol dependence with intoxication, uncomplicated
CPT/HCPCS: 36415; 70450-TC; 70551-TC; 72141-TC; 76705-TC; 80051; 80053; 80307; 81003; 82550; 82607; 82746; 82962; 83735; 84100; 84436; 84443; 85025; 85027; 85610; 87086; 93005; 93010; 97116-GP; 99285-25; C9803; G0378; U0003; U0005